=== PATIENT | female | born 1995 | race Caucasian/White ===

== ENCOUNTER 2022-04-12 13:39 | Emergency (ER) | payer MEDICAID ==
[~2022-04-12] VITALS: Ht 165.1 cm; Wt 91.0 kg
[2022-04-12] MEDS ORDERED: ONDANSETRON HCL 4MG/2ML INJ IV STA (16:48)
[2022-04-12] MEDS ORDERED: KETOROLAC 30MG/ML VIAL IV STA (16:48)
[2022-04-12] MEDS ORDERED: MAGNESIUM/ALUMINUM HYDROXIDE/SIMETHICONE 30ML UDC PO STA (16:48)
[2022-04-12] MEDS ORDERED: FAMOTIDINE 20MG/2ML VIAL IV STA (16:48)
[2022-04-12] MEDS ORDERED: SODIUM CHLORIDE 0.9% 1,000 ML IV ONE (17:00)
[2022-04-12 17:09] LABS: BASOPHILS % 0.2 % (0.0-2.0); EOSINOPHILS % 0.5 % (0.0-5.0); HEMATOCRIT. 43.1 % (36.0-48.0); HEMOGLOBIN. 14.3 g/dL (12.0-16.0); MEAN CORPUSCULAR HEMOGLOBIN 28.1 pg (28.0-32.0); MEAN PLATELET VOLUME 8.1 fl (7.4-10.4); MONOCYTES % 4.8 % (2.0-8.0); NEUTROPHILS % 86.5 % (40.0-76.0); PLATELET 328 x1000/uL (130-400); RED BLOOD CELL COUNT 5.07 mill/uL (4.2-5.4); RED CELL DISTRIBUTION WIDTH 13.6 % (11.6-14.6)
[2022-04-12 17:18] LABS: CHLORIDE 103 mEq/L (98-107)
[2022-04-12 17:32] VITALS: BP 151/95
[2022-04-12] MEDS ORDERED: ACET-2708 PO (19:24)
[2022-04-12] MEDS ORDERED: BISM-169 PO (19:24)
[2022-04-12] MEDS ORDERED: CIPR500T5 PO (19:24)
[2022-04-12] MEDS ORDERED: ONDA4TAB50 PO (19:24)
[2022-04-12 19:28] LABS: CLARITY URINE CLOUDY (CLEAR); COLOR URINE YELLOW (YELLOW); KETONES URINE 3+ (NEGATIVE); LEUKOCYTE ESTERASE URINE TRACE (NEGATIVE); NITRITE URINE NEGATIVE (NEGATIVE); OCCULT BLOOD URINE TRACE (NEGATIVE); PH URINE 5.5 (4.5-8.0); PROTEIN URINE TRACE (NEGATIVE); SPECIFIC GRAVITY URINE 1.029 (1.005-1.030); UROBILINOGEN URINE 0.2 E.U./dL (0.2-1.0)
== END 2022-04-12 19:47 | disposition home or self-care (01) ==
LOC: ER 13:39
DX: K52.9 Noninfective gastroenteritis and colitis, unspecified (principal)
CPT/HCPCS: 36415; 80053; 81003; 83690; 85025; 96374; 96375; 99284; J1885; J2405; J3490; J7030

== ENCOUNTER 2022-05-09 00:45 | Emergency (ER) | payer MEDICAID ==
[~2022-05-09] VITALS: Ht 165.1 cm; Wt 91.0 kg
[~2022-05-09 00:45] MED LIST: ACET-2708 PO; BISM-169 PO; CIPR500T5 PO; ONDA4TAB50 PO
[2022-05-09 00:58] VITALS: BP 133/78
== END 2022-05-09 05:23 | disposition left against medical advice (07) ==
LOC: ER 00:45
DX: Z53.21 Procedure and treatment not carried out due to patient leaving prior to being seen by health care provider (principal)

== ENCOUNTER 2022-08-09 01:18 | Emergency (ER) | payer MEDICAID ==
[~2022-08-09] VITALS: Ht 165.1 cm; Wt 100.0 kg
[2022-08-09 02:40] LABS: BASOPHILS % 0.6 % (0.0-2.0); EOSINOPHILS % 0.5 % (0.0-5.0); HEMATOCRIT. 37.6 % (36.0-48.0); HEMOGLOBIN. 12.6 g/dL (12.0-16.0); LYMPHOCYTES % 23.4 % (20.0-50.0); MEAN CORPUSCULAR HEMOGLOBIN 29.3 pg (28.0-32.0); MEAN CORPUSCULAR VOLUME 87.5 fL (81.0-99.0); MEAN PLATELET VOLUME 8.6 fl (7.4-10.4); NEUTROPHILS % 69.5 % (40.0-76.0); PLATELET 289 x1000/uL (130-400); RED CELL DISTRIBUTION WIDTH 13.8 % (11.6-14.6)
[2022-08-09 02:49] LABS: CHLORIDE 105 mEq/L (98-107)
[2022-08-09 04:11] LABS: CLARITY URINE CLEAR (CLEAR); COLOR URINE YELLOW (YELLOW); KETONES URINE 2+ (NEGATIVE); LEUKOCYTE ESTERASE URINE NEGATIVE (NEGATIVE); NITRITE URINE NEGATIVE (NEGATIVE); OCCULT BLOOD URINE NEGATIVE (NEGATIVE); PH URINE 6.5 (4.5-8.0); PROTEIN URINE NEGATIVE (NEGATIVE); SPECIFIC GRAVITY URINE 1.005 (1.005-1.030); UROBILINOGEN URINE 0.2 E.U./dL (0.2-1.0)
[2022-08-09] MEDS ORDERED: PNV1TABL50 PO (07:12)
[2022-08-09] MEDS ORDERED: TOPUD PO (07:12)
[2022-08-09 07:49] VITALS: BP 110/63
== END 2022-08-09 07:58 | disposition home or self-care (01) ==
LOC: ER 01:29
DX: O26.891 Other specified pregnancy related conditions, first trimester (principal); R10.9 Unspecified abdominal pain; R07.89 Other chest pain; M54.6 Pain in thoracic spine; R06.02 Shortness of breath; R00.0 Tachycardia, unspecified; O26.831 Pregnancy related renal disease, first trimester; Z3A.01 Less than 8 weeks gestation of pregnancy
CPT/HCPCS: 36415; 71045; 76770; 76801; 76817; 80053; 81003; 81025; 83690; 84702; 85025; 86850; 86900; 86901; 93005; 99285; Z7610

== ENCOUNTER 2022-09-18 02:55 | Emergency (ER) | payer MEDICAID ==
[~2022-09-18] VITALS: Ht 165.1 cm; Wt 87.1 kg
[~2022-09-18 02:55] MED LIST changes: +PNV1TABL50 PO; +TOPUD PO
[2022-09-18 04:31] LABS: BASOPHILS % 0.5 % (0.0-2.0); EOSINOPHILS % 0.9 % (0.0-5.0); HEMATOCRIT. 37.9 % (36.0-48.0); LYMPHOCYTES % 29.2 % (20.0-50.0); MEAN CORPUSCULAR HEMOGLOBIN 29.8 pg (28.0-32.0); MEAN CORPUSCULAR VOLUME 87.3 fL (81.0-99.0); MEAN PLATELET VOLUME 8.3 fl (7.4-10.4); MONOCYTES % 4.7 % (2.0-8.0); NEUTROPHILS % 64.7 % (40.0-76.0); PLATELET 317 x1000/uL (130-400); RED BLOOD CELL COUNT 4.35 mill/uL (4.2-5.4); RED CELL DISTRIBUTION WIDTH 14.1 % (11.6-14.6)
[2022-09-18 04:49] LABS: CHLORIDE 103 mEq/L (98-107)
[2022-09-18] MEDS ORDERED: PREN1COM MT (04:56)
[2022-09-18 05:09] LABS: B-HCG QUANTITATIVE 103821 mIU/mL (<3)
[2022-09-18 05:12] LABS: CLARITY URINE CLEAR (CLEAR); COLOR URINE YELLOW (YELLOW); KETONES URINE 3+ (NEGATIVE); LEUKOCYTE ESTERASE URINE NEGATIVE (NEGATIVE); NITRITE URINE NEGATIVE (NEGATIVE); OCCULT BLOOD URINE NEGATIVE (NEGATIVE); PROTEIN URINE TRACE (NEGATIVE); SPECIFIC GRAVITY URINE 1.032 (1.005-1.030)
[2022-09-18 05:53] VITALS: BP 131/79
== END 2022-09-18 05:40 | disposition home or self-care (01) ==
LOC: ER 02:55
DX: O26.891 Other specified pregnancy related conditions, first trimester (principal); R10.30 Lower abdominal pain, unspecified; R10.2 Pelvic and perineal pain; R03.0 Elevated blood-pressure reading, without diagnosis of hypertension; Z3A.11 11 weeks gestation of pregnancy
CPT/HCPCS: 36415; 76801; 80053; 81003; 81025; 84702; 85025; 99284

== ENCOUNTER 2022-11-26 05:16 | Emergency (ER) | payer MEDICAID ==
[~2022-11-26] VITALS: Ht 167.6 cm; Wt 87.0 kg
[~2022-11-26 05:16] MED LIST changes: +PREN1COM MT
[2022-11-26 06:48] LABS: CLARITY URINE CLEAR (CLEAR); COLOR URINE YELLOW (YELLOW); KETONES URINE TRACE (NEGATIVE); LEUKOCYTE ESTERASE URINE 1+ (NEGATIVE); NITRITE URINE NEGATIVE (NEGATIVE); OCCULT BLOOD URINE TRACE (NEGATIVE); PROTEIN URINE NEGATIVE (NEGATIVE); SPECIFIC GRAVITY URINE 1.017 (1.005-1.030); UROBILINOGEN URINE 0.2 E.U./dL (0.2-1.0)
[2022-11-26] MEDS ORDERED: METR-167 MT (07:51)
[2022-11-26 08:19] VITALS: BP 118/76
[2022-11-28 07:08] LABS: HIV SCREEN 4G Non Reactive (Non Reactive)
[2022-11-29 04:07] LABS: NEISSERIA GONORRHOEAE NAA Negative (Negative)
== END 2022-11-26 08:20 | disposition home or self-care (01) ==
LOC: ER 05:16
DX: N89.8 Other specified noninflammatory disorders of vagina (principal)
CPT/HCPCS: 81003; 81025; 87210; 87389; 87491; 87591; 99284; Z7610; 99283

== ENCOUNTER 2022-11-28 02:12 | Emergency (ER) | payer MEDICAID ==
[~2022-11-28] VITALS: Ht 167.6 cm; Wt 87.0 kg
[~2022-11-28 02:12] MED LIST changes: +METR-167 MT
[2022-11-28 02:24] VITALS: BP 123/61
== END 2022-11-28 03:10 | disposition home or self-care (01) ==
LOC: ER 02:12
DX: L50.0 Allergic urticaria (principal)
CPT/HCPCS: 99281

== ENCOUNTER 2022-12-10 19:05 | Emergency (ER) | payer MEDICAID ==
[~2022-12-10] VITALS: Ht 160 cm; Wt 87.0 kg
[2022-12-10 19:10] VITALS: BP 141/85
== END 2022-12-10 21:48 | disposition left against medical advice (07) ==
LOC: ER 19:05
DX: T43.641A Poisoning by ecstasy, accidental (unintentional), initial encounter (principal); Z53.21 Procedure and treatment not carried out due to patient leaving prior to being seen by health care provider; Y92.89 Other specified places as the place of occurrence of the external cause
CPT/HCPCS: 99281